=== PATIENT | male | born 1980 | race Hispanic/Latino ===

== ENCOUNTER 2017-02-28 11:07 | Emergency (ER) | payer BC ==
[2017-02-28 11:26] VITALS: BP 139/92
[2017-02-28 11:48] LABS: Basophils % (Auto) 0.6 % (0.0-1.8); Eosinophils % (Auto) 4.4 % (0.0-4.3); Hematocrit 42.4 % (35.5-45.6); Hemoglobin 13.9 gm/dl (11.8-15.2); Mean Corpuscular HGB Conc 33 % (32-34); Mean Corpuscular Hemoglobin 30 pg (28-32); Mean Corpuscular Volume 91 fl (84-94); Platelet Count 238 K/mm3 (140-440); Red Blood Count 4.67 M/mm3 (3.65-5.03); Red Cell Distribution Width 13.6 % (13.2-15.2); White Blood Count 6.6 K/mm3 (4.5-11.0)
[2017-02-28 12:10] LABS: Alanine Aminotransferase 16 units/L (7-56); Albumin 4.7 g/dL (3.9-5); Albumin/Globulin Ratio 1.4 %; Alkaline Phosphatase 23 units/L (35-129); Anion Gap 19 mmol/L; Blood Urea Nitrogen 15 mg/dL (9-20); Calcium 9.4 mg/dL (8.4-10.2); Carbon Dioxide 26 mmol/L (22-30); Chloride 101.4 mmol/L (98-107); Glucose 101 mg/dL (75-100); Lipase 50 units/L (13-60); Potassium 4.2 mmol/L (3.6-5.0); Sodium 142 mmol/L (137-145)
[2017-02-28 12:11] LABS: Bilirubin,Urine NEG (Negative); Blood,Urine SM (Negative); Ketones,Urine NEG (Negative); Leukocyte Esterase,Urine NEG (Negative); Mucus,Urine 3+ /HPF; Nitrite,Urine NEG (Negative); WBC,Urine < 1.0 /HPF (0.0-6.0)
--- NOTE | 2017-03-02 01:32 | ED Elopement Review ---
ED Pt Elopement review - Results review Lab results: Laboratory Tests 02/28/17 02/28/17 02/28/17 11:24 11:28 11:28 WBC 6.6 RBC 4.67 Hgb 13.9 Hct 42.4 MCV 91 MCH 30 MCHC 33 RDW 13.6 Plt Count 238 Lymph % (Auto) 21.1 [place] % (Auto) 7.7 H Eos % (Auto) 4.4 H Baso % (Auto) 0.6 Lymph # 1.4 [place] # 0.5 Eos # 0.3 Baso # 0.0 Seg Neutrophils % 66.2 Seg Neutrophils # 4.4 Sodium 142 Potassium 4.2 Chloride 101.4 Carbon Dioxide 26 Anion Gap 19 BUN 15 Creatinine 1.2 Estimated GFR > 60 BUN/Creatinine Ratio 12.50 Glucose 101 H Calcium 9.4 Total Bilirubin 0.30 AST 19 ALT 16 Alkaline Phosphatase 23 L Total Protein 8.0 Albumin 4.7 Albumin/Globulin Ratio 1.4 Lipase 50 Urine Color Yellow Urine Turbidity Clear Urine pH 5.0 Ur Specific [place] 1.024 Urine Protein 30 mg/dl Urine Glucose (UA) Neg Urine Ketones Neg Urine Blood Sm Urine Nitrite Neg Urine Bilirubin Neg Urine Urobilinogen 2.0 Ur Leukocyte Esterase Neg Urine WBC (Auto) < 1.0 Urine RBC (Auto) 9.0 U Epithel Cells (Auto) < 1.0 Urine Mucus 3+ - Call Back decision Pt Call Back Decision: No action required
== END 2017-02-28 19:20 | disposition left against medical advice (07) ==
LOC: ED 11:07
DX: R10.31 Right lower quadrant pain (principal); F17.200 Nicotine dependence, unspecified, uncomplicated; Z53.21 Procedure and treatment not carried out due to patient leaving prior to being seen by health care provider
CPT/HCPCS: 36415; 80053; 81001; 83690; 85025